=== PATIENT | male | born 1980 | race Caucasian/White ===

== ENCOUNTER 2016-08-23 20:09 | Emergency (ER) | payer MEDICARE, OTHER ==
[~2016-08-23] VITALS: Ht 182.9 cm; Wt 85.0 kg
[~2016-08-23 20:09] MED LIST: OLAN10TA3 PO; TRAZ-147 PO
[2016-08-23 20:12] VITALS: BP 127/85
[2016-08-23 20:48] LABS: BASOPHILS # (AUTO) 0.04 K/uL (0.00-0.20); BASOPHILS % (AUTO) 0.5 % (0.0-2.0); EOSINOPHILS # (AUTO) 0.31 K/uL (0.00-0.70); HEMATOCRIT 46.3 % (41-53); HEMOGLOBIN 15.4 g/dL (13.5-17.5); LYMPHOCYTES # (AUTO) 2.6 K/uL (1.0-4.8); LYMPHOCYTES % (AUTO) 27.2 % (22.0-44.0); MEAN CORPUSCULAR HEMOGLOBIN 30.1 pg (26.0-34.0); MEAN CORPUSCULAR HGB CONC 33.4 G/dL (31.0-37.0); MEAN CORPUSCULAR VOLUME 90 fL (80-100); MONOCYTES # (AUTO) 0.4 K/uL (0.1-1.0); MONOCYTES % (AUTO) 4.5 % (2.0-9.0); NEUTROPHILS # (AUTO) 6.1 K/uL (1.8-7.7); NEUTROPHILS % (AUTO) 64.5 % (40.0-70.0); PLATELET COUNT (AUTO) 152 K/uL (150-450); RED BLOOD CELL COUNT(AUTO) 5.12 MIL/uL (4.50-5.90); RED CELL DISTRIBUTION WIDTH 13.5 % (11.5-14.5); WHITE BLOOD COUNT (AUTO) 9.4 K/uL (4.5-11.0)
[2016-08-23 20:56] LABS: ANION GAP 11 mmol/L (8-16); CALCIUM, TOTAL 8.6 mg/dL (8.8-10.5); CARBON DIOXIDE 26 mmol/L (22-29); CHLORIDE 103 mmol/L (98-107); CREATININE 0.84 mg/dL (0.60-1.30); GLOMERULAR FILTR. RATE CALC > 60 mL/min (>60); POTASSIUM 3.8 mmol/L (3.5-5.1); SODIUM SERUM 140 mmol/L (136-145); UREA NITROGEN, BLOOD 13 mg/dL (7-18)
[2016-08-23 21:02] LABS: ALANINE AMINOTRANSFERASE 39 U/L (12-78); ALBUMIN 3.9 g/dL (3.4-5.0); ASPARTATE AMINOTRANSFERASE 15 U/L (15-37); BILIRUBIN,TOTAL 0.3 mg/dL (0.1-1.0)
== END 2016-08-23 21:39 | disposition home or self-care (01) ==
LOC: EMS 20:13
DX: F25.9 Schizoaffective disorder, unspecified (principal); F17.210 Nicotine dependence, cigarettes, uncomplicated; Z88.1 Allergy status to other antibiotic agents
CPT/HCPCS: 36415; 80053; 80307; 85025; 99285; G0480

== ENCOUNTER 2016-09-10 11:02 | Inpatient (IN) | payer MEDICARE, MEDICAID ==
[~2016-09-10] VITALS: Ht 188 cm; Wt 78.2 kg
[2016-09-10 11:51] LABS: BASOPHILS % (AUTO) 0.5 % (0.0-2.0); EOSINOPHILS % (AUTO) 1.8 % (1.0-6.0); HEMATOCRIT 50.9 % (41-53); HEMOGLOBIN 16.5 g/dL (13.5-17.5); LYMPHOCYTES # (AUTO) 1.7 K/uL (1.0-4.8); LYMPHOCYTES % (AUTO) 19.9 % (22.0-44.0); MEAN CORPUSCULAR HEMOGLOBIN 29.1 pg (26.0-34.0); MEAN CORPUSCULAR HGB CONC 32.4 G/dL (31.0-37.0); MEAN CORPUSCULAR VOLUME 90 fL (80-100); MONOCYTES # (AUTO) 0.6 K/uL (0.1-1.0); MONOCYTES % (AUTO) 7.1 % (2.0-9.0); NEUTROPHILS # (AUTO) 5.9 K/uL (1.8-7.7); NEUTROPHILS % (AUTO) 70.7 % (40.0-70.0); PLATELET COUNT (AUTO) 186 K/uL (150-450); RED BLOOD CELL COUNT(AUTO) 5.66 MIL/uL (4.50-5.90); RED CELL DISTRIBUTION WIDTH 13.3 % (11.5-14.5); WHITE BLOOD COUNT (AUTO) 8.4 K/uL (4.5-11.0)
[2016-09-10 12:05] LABS: ANION GAP 10 mmol/L (8-16); CALCIUM, TOTAL 8.7 mg/dL (8.8-10.5); CARBON DIOXIDE 27 mmol/L (22-29); CHLORIDE 103 mmol/L (98-107); CREATININE 1.07 mg/dL (0.60-1.30); GLOMERULAR FILTR. RATE CALC > 60 mL/min (>60); POTASSIUM 3.6 mmol/L (3.5-5.1); SODIUM SERUM 140 mmol/L (136-145); UREA NITROGEN, BLOOD 16 mg/dL (7-18)
[2016-09-10 12:07] LABS: ALANINE AMINOTRANSFERASE 50 U/L (12-78); ALBUMIN 4.3 g/dL (3.4-5.0); ASPARTATE AMINOTRANSFERASE 16 U/L (15-37); BILIRUBIN,TOTAL 0.6 mg/dL (0.1-1.0); TOTAL PROTEIN, SERUM 7.6 g/dL (6.4-8.2)
[2016-09-10] MEDS ORDERED: HALOPERIDOL 5 MG TABLET PO ONE (13:45)
[2016-09-10] MEDS ORDERED: ZOLPIDEM TARTRATE 10 MG TABLET PO PRN (13:45)
[2016-09-10 17:23] VITALS: BP 128/82
[2016-09-11 07:00] VITALS: BP 120/93
[2016-09-11 08:14] VITALS: BP 117/88
[2016-09-11 08:28] LABS: BASOPHILS % (AUTO) 0.9 % (0.0-2.0); EOSINOPHILS % (AUTO) 2.8 % (1.0-6.0); HEMATOCRIT 48.8 % (41-53); HEMOGLOBIN 15.8 g/dL (13.5-17.5); LYMPHOCYTES # (AUTO) 1.9 K/uL (1.0-4.8); LYMPHOCYTES % (AUTO) 24.3 % (22.0-44.0); MEAN CORPUSCULAR HEMOGLOBIN 29.2 pg (26.0-34.0); MEAN CORPUSCULAR HGB CONC 32.4 G/dL (31.0-37.0); MEAN CORPUSCULAR VOLUME 90 fL (80-100); MONOCYTES # (AUTO) 0.6 K/uL (0.1-1.0); MONOCYTES % (AUTO) 7.1 % (2.0-9.0); NEUTROPHILS # (AUTO) 5.2 K/uL (1.8-7.7); NEUTROPHILS % (AUTO) 64.9 % (40.0-70.0); PLATELET COUNT (AUTO) 187 K/uL (150-450); RED BLOOD CELL COUNT(AUTO) 5.41 MIL/uL (4.50-5.90); RED CELL DISTRIBUTION WIDTH 13.9 % (11.5-14.5)
[2016-09-11] MEDS: NICOTINE 21 MG/24 HOUR PATCH TD SCH (08:34)
[2016-09-11 08:47] LABS: ALANINE AMINOTRANSFERASE 41 U/L (12-78); ALBUMIN 4.1 g/dL (3.4-5.0); ANION GAP 11 mmol/L (8-16); ASPARTATE AMINOTRANSFERASE 15 U/L (15-37); BILIRUBIN,TOTAL 0.5 mg/dL (0.1-1.0); CALCIUM, TOTAL 8.6 mg/dL (8.8-10.5); CARBON DIOXIDE 27 mmol/L (22-29); CHLORIDE 101 mmol/L (98-107); CHOL/HDL RATIO 4.6 (4.2-7.3); CREATININE 0.94 mg/dL (0.60-1.30); GLOMERULAR FILTR. RATE CALC > 60 mL/min (>60); SODIUM SERUM 139 mmol/L (136-145); TOTAL PROTEIN, SERUM 7.4 g/dL (6.4-8.2); UREA NITROGEN, BLOOD 17 mg/dL (7-18)
[2016-09-11] MEDS: HALOPERIDOL 5 MG TABLET PO PRN (08:58)
[2016-09-11] MEDS ORDERED: CloNIDine HCL 0.1 MG TABLET PO PRN (10:00)
[2016-09-11] MEDS ORDERED: ALBUTEROL SULFATE HFA 90 MCG/PUFF 8 GM INHALER IH PRN (10:00)
[2016-09-11] MEDS ORDERED: PETROLATUM,WHITE 71 GM JELLY TP PRN (10:00)
[2016-09-11] MEDS ORDERED: MAGNESIUM HYDROXIDE SUSPENSION 30 ML UDCUP PO PRN (10:00)
[2016-09-11] MEDS ORDERED: LOPERAMIDE HCL 2 MG CAPSULE PO PRN (10:00)
[2016-09-11] MEDS ORDERED: ONDANSETRON HCL 4 MG TABLET PO PRN (10:00)
[2016-09-11] MEDS ORDERED: BENZOCAINE/MENTHOL LOZENGE MM PRN (10:00)
[2016-09-11] MEDS ORDERED: BACITRACIN 28.4 GM OINTMENT TP PRN (10:00)
[2016-09-11] MEDS ORDERED: IBUPROFEN 600 MG TABLET PO PRN (10:00)
[2016-09-11] MEDS ORDERED: MAG HYDROX/AL HYDROX/SIMETH ES 30 ML SUSPENSION UDCUP PO PRN (10:00)
[2016-09-11] MEDS ORDERED: ACETAMINOPHEN 325 MG TABLET PO PRN (10:00)
[2016-09-11 16:10] VITALS: BP 106/67
[2016-09-11] MEDS: TraZODone HCL 100 MG TABLET PO SCH (21:03)
[2016-09-11] MEDS: OLANZapine 10 MG TABLET PO SCH (21:03)
[2016-09-12 06:25] VITALS: BP 104/75
[2016-09-12 08:19] VITALS: BP 109/60
[2016-09-12] MEDS: NICOTINE 21 MG/24 HOUR PATCH TD SCH (09:14)
[2016-09-12 16:08] VITALS: BP 107/63
[2016-09-12] MEDS: OLANZapine 10 MG TABLET PO SCH (20:37)
[2016-09-12] MEDS: TraZODone HCL 100 MG TABLET PO SCH (20:37)
[2016-09-13 00:55] VITALS: BP 115/64
[2016-09-13 08:20] VITALS: BP 111/63
[2016-09-13] MEDS: NICOTINE 21 MG/24 HOUR PATCH TD SCH (09:00)
[2016-09-13 16:08] VITALS: BP 122/75
[2016-09-13] MEDS: OLANZapine 10 MG TABLET PO SCH (20:36)
[2016-09-13] MEDS: TraZODone HCL 100 MG TABLET PO SCH (20:36)
[2016-09-14 03:50] VITALS: BP 108/87
[2016-09-14 08:06] VITALS: BP 127/87
[2016-09-14] MEDS: NICOTINE 21 MG/24 HOUR PATCH TD SCH (08:13)
[2016-09-14 16:11] VITALS: BP 133/85
[2016-09-14] MEDS: OLANZapine 10 MG TABLET PO SCH (20:37)
[2016-09-14] MEDS: TraZODone HCL 100 MG TABLET PO SCH (20:38)
[2016-09-15 02:14] VITALS: BP 107/66
[2016-09-15 08:08] VITALS: BP 122/70
[2016-09-15] MEDS: NICOTINE 21 MG/24 HOUR PATCH TD SCH (08:10)
[2016-09-15 16:10] VITALS: BP 125/72
[2016-09-15] MEDS: OLANZapine 10 MG TABLET PO SCH (20:29)
[2016-09-15] MEDS: TraZODone HCL 100 MG TABLET PO SCH (20:29)
[2016-09-16 06:22] VITALS: BP 114/77
[2016-09-16 08:17] VITALS: BP 104/61
[2016-09-16] MEDS: NICOTINE 21 MG/24 HOUR PATCH TD SCH (08:18)
[2016-09-16] MEDS: HALOPERIDOL 5 MG TABLET PO PRN (09:43)
[2016-09-16] MEDS: LORazepam 2 MG TABLET PO PRN (14:02)
[2016-09-16 16:10] VITALS: BP 117/66
[2016-09-16] MEDS: TraZODone HCL 100 MG TABLET PO SCH (20:39)
[2016-09-16] MEDS: OLANZapine 10 MG TABLET PO SCH (20:39)
[2016-09-17 06:06] VITALS: BP 102/71
[2016-09-17] MEDS: LORazepam 2 MG TABLET PO PRN (08:26)
[2016-09-17] MEDS: NICOTINE 21 MG/24 HOUR PATCH TD SCH (08:26)
[2016-09-17 08:36] VITALS: BP 125/76
[2016-09-17 16:39] VITALS: BP 119/69
[2016-09-17] MEDS: TraZODone HCL 100 MG TABLET PO SCH (20:35)
[2016-09-17] MEDS: OLANZapine 10 MG TABLET PO SCH (20:35)
[2016-09-18 06:31] VITALS: BP 110/65
[2016-09-18 08:10] VITALS: BP 107/67
[2016-09-18] MEDS: NICOTINE 21 MG/24 HOUR PATCH TD SCH (09:11)
[2016-09-18 16:10] VITALS: BP 137/72
[2016-09-18] MEDS: OLANZapine 10 MG TABLET PO SCH (20:34)
[2016-09-18] MEDS: TraZODone HCL 100 MG TABLET PO SCH (20:34)
[2016-09-19 06:19] VITALS: BP 122/72
[2016-09-19] MEDS: LEVOTHYROXINE SODIUM 25 MCG TABLET PO SCH (06:33)
[2016-09-19 08:15] VITALS: BP 120/76
[2016-09-19] MEDS: NICOTINE 21 MG/24 HOUR PATCH TD SCH (09:15)
[2016-09-19 16:31] VITALS: BP 111/73
[2016-09-19] MEDS: TraZODone HCL 100 MG TABLET PO SCH (20:38)
[2016-09-19] MEDS: OLANZapine 10 MG TABLET PO SCH (20:39)
[2016-09-20] MEDS: LEVOTHYROXINE SODIUM 25 MCG TABLET PO SCH (06:23)
[2016-09-20 06:42] VITALS: BP 114/62
[2016-09-20] MEDS: NICOTINE 21 MG/24 HOUR PATCH TD SCH (08:13)
[2016-09-20 09:46] VITALS: BP 117/88
[2016-09-20 16:18] VITALS: BP 112/80
[2016-09-20] MEDS: OLANZapine 10 MG TABLET PO SCH (20:42)
[2016-09-20] MEDS: TraZODone HCL 100 MG TABLET PO SCH (20:43)
[2016-09-21 00:11] VITALS: BP 100/62
[2016-09-21] MEDS: LEVOTHYROXINE SODIUM 25 MCG TABLET PO SCH (06:02)
[2016-09-21] MEDS: NICOTINE 21 MG/24 HOUR PATCH TD SCH (08:12)
[2016-09-21 08:35] VITALS: BP 115/68
[2016-09-21] MEDS ORDERED: LEVO25TA9 PO (11:44)
[2016-09-29] MEDS ORDERED: HALOPERIDOL DECANOATE 100 MG/ML VIAL IM SCH (09:00)
== END 2016-09-21 16:05 | disposition home or self-care (01) | DRG 885 ==
LOC: EEVIPCON 11:02 → EMS 11:05 → B2X 16:14
DX: F25.1 Schizoaffective disorder, depressive type (principal); R45.851 Suicidal ideations; F17.210 Nicotine dependence, cigarettes, uncomplicated; G47.00 Insomnia, unspecified; K59.00 Constipation, unspecified; Z91.14 Patient's other noncompliance with medication regimen; Z91.5 Personal history of self-harm; Z71.6 Tobacco abuse counseling; Z88.2 Allergy status to sulfonamides; Z79.899 Other long term (current) drug therapy
CPT/HCPCS: 82306; 84443; 99285; G0480

== ENCOUNTER 2016-10-01 10:41 | Inpatient (IN) | payer MEDICARE, MEDICAID ==
[~2016-10-01] VITALS: Ht 188 cm; Wt 79.5 kg
[~2016-10-01 10:41] MED LIST changes: +LEVO25TA9 PO
[2016-10-01 11:02] LABS: BASOPHILS % (AUTO) 0.4 % (0.0-2.0); EOSINOPHILS % (AUTO) 1.1 % (1.0-6.0); HEMATOCRIT 50.3 % (41-53); HEMOGLOBIN 17.1 g/dL (13.5-17.5); LYMPHOCYTES # (AUTO) 1.3 K/uL (1.0-4.8); LYMPHOCYTES % (AUTO) 15.8 % (22.0-44.0); MEAN CORPUSCULAR HEMOGLOBIN 30.2 pg (26.0-34.0); MEAN CORPUSCULAR HGB CONC 33.9 G/dL (31.0-37.0); MEAN CORPUSCULAR VOLUME 89 fL (80-100); MONOCYTES # (AUTO) 0.4 K/uL (0.1-1.0); MONOCYTES % (AUTO) 5.4 % (2.0-9.0); NEUTROPHILS # (AUTO) 6.3 K/uL (1.8-7.7); NEUTROPHILS % (AUTO) 77.3 % (40.0-70.0); PLATELET COUNT (AUTO) 173 K/uL (150-450); RED BLOOD CELL COUNT(AUTO) 5.66 MIL/uL (4.50-5.90); RED CELL DISTRIBUTION WIDTH 13.8 % (11.5-14.5); WHITE BLOOD COUNT (AUTO) 8.2 K/uL (4.5-11.0)
[2016-10-01 11:15] LABS: ANION GAP 9 mmol/L (8-16); CALCIUM, TOTAL 8.6 mg/dL (8.8-10.5); CARBON DIOXIDE 28 mmol/L (22-29); CHLORIDE 103 mmol/L (98-107); GLOMERULAR FILTR. RATE CALC > 60 mL/min (>60); POTASSIUM 4.1 mmol/L (3.5-5.1); SODIUM SERUM 140 mmol/L (136-145); UREA NITROGEN, BLOOD 13 mg/dL (7-18)
[2016-10-01] MEDS ORDERED: CLON.5 PO (11:16)
[2016-10-01 11:21] LABS: ALANINE AMINOTRANSFERASE 64 U/L (12-78); ALBUMIN 4.3 g/dL (3.4-5.0); ASPARTATE AMINOTRANSFERASE 17 U/L (15-37); BILIRUBIN,TOTAL 0.4 mg/dL (0.1-1.0); TOTAL PROTEIN, SERUM 7.5 g/dL (6.4-8.2)
[2016-10-01] MEDS ORDERED: ZOLPIDEM TARTRATE 10 MG TABLET PO PRN (12:15)
[2016-10-01] MEDS ORDERED: HALOPERIDOL 5 MG TABLET PO PRN (12:15)
[2016-10-01] MEDS ORDERED: LORazepam 2 MG TABLET PO PRN (12:15)
[2016-10-01 16:43] VITALS: BP 118/86
[2016-10-01] MEDS: ClonazePAM 0.5 MG TABLET PO SCH (16:57)
[2016-10-01] MEDS ORDERED: MAGNESIUM HYDROXIDE SUSPENSION 30 ML UDCUP PO PRN (19:15)
[2016-10-01] MEDS: TraZODone HCL 100 MG TABLET PO SCH (20:35)
[2016-10-01] MEDS: OLANZapine 10 MG TABLET PO SCH (20:35)
[2016-10-02 05:12] VITALS: BP 122/89
[2016-10-02 08:02] VITALS: BP 115/72
[2016-10-02] MEDS ORDERED: LOPERAMIDE HCL 2 MG CAPSULE PO PRN (08:30)
[2016-10-02] MEDS ORDERED: IBUPROFEN 600 MG TABLET PO PRN (08:30)
[2016-10-02] MEDS ORDERED: ONDANSETRON HCL 4 MG TABLET PO PRN (08:30)
[2016-10-02] MEDS ORDERED: BACITRACIN 28.4 GM OINTMENT TP PRN (08:30)
[2016-10-02] MEDS ORDERED: PETROLATUM,WHITE 71 GM JELLY TP PRN (08:30)
[2016-10-02] MEDS ORDERED: MAG HYDROX/AL HYDROX/SIMETH ES 30 ML SUSPENSION UDCUP PO PRN (08:30)
[2016-10-02] MEDS ORDERED: CloNIDine HCL 0.1 MG TABLET PO PRN (08:30)
[2016-10-02] MEDS ORDERED: BENZOCAINE/MENTHOL LOZENGE MM PRN (08:30)
[2016-10-02] MEDS ORDERED: ACETAMINOPHEN 325 MG TABLET PO PRN (08:30)
[2016-10-02] MEDS ORDERED: ALBUTEROL SULFATE HFA 90 MCG/PUFF 8 GM INHALER IH PRN (08:30)
[2016-10-02] MEDS: NICOTINE 21 MG/24 HOUR PATCH TD SCH (08:50)
[2016-10-02] MEDS: ClonazePAM 0.5 MG TABLET PO SCH ×2 (08:50→16:32)
[2016-10-02] MEDS: SERTRALINE HCL 50 MG TABLET PO SCH (10:43)
[2016-10-02 16:06] VITALS: BP 125/84
[2016-10-02] MEDS: TraZODone HCL 100 MG TABLET PO SCH (20:33)
[2016-10-02] MEDS: OLANZapine 10 MG TABLET PO SCH (20:34)
[2016-10-02] MEDS ORDERED: OLANZapine 10 MG TABLET PO SCH (21:00)
[2016-10-02] MEDS ORDERED: TraZODone HCL 50 MG TABLET PO SCH (21:00)
[2016-10-03 00:03] VITALS: BP 106/71
[2016-10-03] MEDS: LEVOTHYROXINE SODIUM 25 MCG TABLET PO SCH (06:31)
[2016-10-03 08:09] VITALS: BP 123/68
[2016-10-03] MEDS: ClonazePAM 0.5 MG TABLET PO SCH ×2 (08:47→16:35)
[2016-10-03] MEDS: NICOTINE 21 MG/24 HOUR PATCH TD SCH (08:48)
[2016-10-03] MEDS: SERTRALINE HCL 50 MG TABLET PO SCH (08:48)
[2016-10-03 16:09] VITALS: BP 125/85
[2016-10-03] MEDS: OLANZapine 10 MG TABLET PO SCH (20:33)
[2016-10-03] MEDS: TraZODone HCL 100 MG TABLET PO SCH (20:33)
[2016-10-04] MEDS: LEVOTHYROXINE SODIUM 25 MCG TABLET PO SCH (05:37)
[2016-10-04 05:48] VITALS: BP 109/64
[2016-10-04 08:27] VITALS: BP 105/64
[2016-10-04] MEDS: FISH OIL/OMEGA-3 FATTY ACIDS 500 MG CAPSULE PO SCH (08:49)
[2016-10-04] MEDS: SERTRALINE HCL 50 MG TABLET PO SCH (08:49)
[2016-10-04] MEDS: NICOTINE 21 MG/24 HOUR PATCH TD SCH (08:49)
[2016-10-04 08:55] VITALS: BP 119/67
[2016-10-04] MEDS: ClonazePAM 0.5 MG TABLET PO SCH ×2 (08:55→16:29)
[2016-10-04 16:03] VITALS: BP 106/66
[2016-10-04] MEDS: OLANZapine 10 MG TABLET PO SCH (20:40)
[2016-10-04] MEDS: TraZODone HCL 100 MG TABLET PO SCH (20:40)
[2016-10-05 06:35] VITALS: BP 112/59
[2016-10-05] MEDS: LEVOTHYROXINE SODIUM 25 MCG TABLET PO SCH (07:19)
[2016-10-05] MEDS: FISH OIL/OMEGA-3 FATTY ACIDS 500 MG CAPSULE PO SCH (08:38)
[2016-10-05] MEDS: ClonazePAM 0.5 MG TABLET PO SCH ×2 (08:38→16:38)
[2016-10-05] MEDS: SERTRALINE HCL 50 MG TABLET PO SCH (08:38)
[2016-10-05] MEDS: NICOTINE 21 MG/24 HOUR PATCH TD SCH (08:39)
[2016-10-05 08:46] VITALS: BP 123/78
[2016-10-05 16:06] VITALS: BP 106/63
[2016-10-05] MEDS: TraZODone HCL 100 MG TABLET PO SCH (20:42)
[2016-10-05] MEDS: OLANZapine 10 MG TABLET PO SCH (20:43)
[2016-10-06 00:03] VITALS: BP 109/65
[2016-10-06] MEDS: LEVOTHYROXINE SODIUM 25 MCG TABLET PO SCH (06:52)
[2016-10-06 08:14] VITALS: BP 100/66
[2016-10-06] MEDS: NICOTINE 21 MG/24 HOUR PATCH TD SCH (08:34)
[2016-10-06] MEDS: SERTRALINE HCL 50 MG TABLET PO SCH (08:34)
[2016-10-06] MEDS: FISH OIL/OMEGA-3 FATTY ACIDS 500 MG CAPSULE PO SCH (08:34)
[2016-10-06 08:38] VITALS: BP 110/77
[2016-10-06] MEDS: ClonazePAM 0.5 MG TABLET PO SCH ×2 (08:38→16:22)
[2016-10-06 16:10] VITALS: BP 126/95
[2016-10-06] MEDS: TraZODone HCL 100 MG TABLET PO SCH (20:04)
[2016-10-06] MEDS: OLANZapine 10 MG TABLET PO SCH (20:04)
[2016-10-07 05:42] VITALS: BP 115/82
[2016-10-07] MEDS: LEVOTHYROXINE SODIUM 25 MCG TABLET PO SCH (06:30)
[2016-10-07 08:29] VITALS: BP 124/84
[2016-10-07] MEDS: ClonazePAM 0.5 MG TABLET PO SCH ×2 (08:30→16:35)
[2016-10-07] MEDS: NICOTINE 21 MG/24 HOUR PATCH TD SCH (08:30)
[2016-10-07] MEDS: SERTRALINE HCL 50 MG TABLET PO SCH (08:30)
[2016-10-07] MEDS: FISH OIL/OMEGA-3 FATTY ACIDS 500 MG CAPSULE PO SCH (08:30)
[2016-10-07 16:35] VITALS: BP 126/67
[2016-10-07] MEDS: OLANZapine 10 MG TABLET PO SCH (20:04)
[2016-10-07] MEDS: TraZODone HCL 100 MG TABLET PO SCH (20:04)
[2016-10-08 00:52] VITALS: BP 107/61
[2016-10-08] MEDS: LEVOTHYROXINE SODIUM 25 MCG TABLET PO SCH (06:47)
[2016-10-08 08:08] VITALS: BP 96/60
[2016-10-08 09:00] VITALS: BP 110/88
[2016-10-08] MEDS: FISH OIL/OMEGA-3 FATTY ACIDS 500 MG CAPSULE PO SCH (09:09)
[2016-10-08] MEDS: SERTRALINE HCL 50 MG TABLET PO SCH (09:09)
[2016-10-08] MEDS: ClonazePAM 0.5 MG TABLET PO SCH ×2 (09:09→16:37)
[2016-10-08] MEDS: NICOTINE 21 MG/24 HOUR PATCH TD SCH (09:10)
[2016-10-08 16:35] VITALS: BP 116/79
[2016-10-08] MEDS: OLANZapine 10 MG TABLET PO SCH (20:02)
[2016-10-08] MEDS: TraZODone HCL 100 MG TABLET PO SCH (20:02)
[2016-10-09] MEDS: LEVOTHYROXINE SODIUM 25 MCG TABLET PO SCH (05:31)
[2016-10-09 05:33] VITALS: BP 119/88
[2016-10-09 08:45] VITALS: BP 109/77
[2016-10-09] MEDS: FISH OIL/OMEGA-3 FATTY ACIDS 500 MG CAPSULE PO SCH (09:15)
[2016-10-09] MEDS: NICOTINE 21 MG/24 HOUR PATCH TD SCH (09:15)
[2016-10-09] MEDS: ClonazePAM 0.5 MG TABLET PO SCH (09:15)
[2016-10-09] MEDS: SERTRALINE HCL 50 MG TABLET PO SCH (09:15)
[2016-10-09] MEDS ORDERED: LEVO25TA9 PO (11:08)
[2016-10-09] MEDS ORDERED: SERT25TA PO (11:08)
[2016-10-09] MEDS ORDERED: OMEG-125 PO (11:08)
== END 2016-10-09 15:05 | disposition home or self-care (01) | DRG 885 ==
LOC: EMS 10:43 → EEVIPCON 10:43 → B2X 15:23
DX: F25.0 Schizoaffective disorder, bipolar type (principal); R45.851 Suicidal ideations; G47.00 Insomnia, unspecified; K59.00 Constipation, unspecified; E78.1 Pure hyperglyceridemia; E83.51 Hypocalcemia; F17.210 Nicotine dependence, cigarettes, uncomplicated; E03.9 Hypothyroidism, unspecified; Z88.2 Allergy status to sulfonamides; Z79.899 Other long term (current) drug therapy; Z71.6 Tobacco abuse counseling
CPT/HCPCS: 82306; 87081; 99285; G0480

== ENCOUNTER 2017-11-04 21:24 | Emergency (ER) | payer MEDICARE, OTHER ==
[~2017-11-04] VITALS: Ht 188 cm; Wt 77.3 kg
[~2017-11-04 21:24] MED LIST changes: +CLON.5 PO; +OMEG-125 PO; +SERT25TA PO; -TRAZ-147 PO; +TRAZ-220 PO
[2017-11-04 21:48] VITALS: BP 118/62
[2017-11-04] MEDS ORDERED: CARI6CAP PO (21:59)
[2017-11-04] MEDS ORDERED: HALO5AMP2 IM (21:59)
[2017-11-04] MEDS ORDERED: BENZ1TAB10 PO (21:59)
== END 2017-11-04 22:54 | disposition home or self-care (01) ==
LOC: EMS 21:24
DX: F20.0 Paranoid schizophrenia (principal); F17.210 Nicotine dependence, cigarettes, uncomplicated; Z88.2 Allergy status to sulfonamides
CPT/HCPCS: 99284

== ENCOUNTER 2018-07-08 16:44 | Emergency (ER) | payer MEDICARE, OTHER ==
[~2018-07-08] VITALS: Ht 182.9 cm; Wt 73.9 kg
[~2018-07-08 16:44] MED LIST changes: +BENZ1TAB10 PO; +CARI6CAP PO; -CLON.5 PO; +HALO5AMP2 IM; -OLAN10TA3 PO; -OMEG-125 PO; -SERT25TA PO; -TRAZ-220 PO
[2018-07-08 17:25] VITALS: BP 134/65
[2018-07-09] MEDS ORDERED: HALO100V4 IM (12:00)
== END 2018-07-08 17:43 | disposition left against medical advice (07) ==
LOC: EMS 16:45
DX: F20.0 Paranoid schizophrenia (principal); F17.210 Nicotine dependence, cigarettes, uncomplicated; Z79.899 Other long term (current) drug therapy

== ENCOUNTER 2018-07-09 08:29 | Inpatient (IN) | payer MEDICARE, MEDICAID ==
[~2018-07-09] VITALS: Ht 185.4 cm; Wt 75.7 kg
[2018-07-09 09:57] LABS: BASOPHILS % (AUTO) 1.1 % (0.0-2.0); EOSINOPHILS % (AUTO) 2.4 % (1.0-6.0); HEMATOCRIT 46.1 % (41-53); HEMOGLOBIN 15.8 g/dL (13.5-17.5); LYMPHOCYTES # (AUTO) 1.5 K/uL (1.0-4.8); LYMPHOCYTES % (AUTO) 18.6 % (22.0-44.0); MEAN CORPUSCULAR HEMOGLOBIN 30.7 pg (26.0-34.0); MEAN CORPUSCULAR HGB CONC 34.2 G/dL (31.0-37.0); MEAN CORPUSCULAR VOLUME 90 fL (80-100); MONOCYTES # (AUTO) 0.7 K/uL (0.1-1.0); MONOCYTES % (AUTO) 8.7 % (2.0-9.0); NEUTROPHILS # (AUTO) 5.7 K/uL (1.8-7.7); NEUTROPHILS % (AUTO) 69.2 % (40.0-70.0); PLATELET COUNT (AUTO) 160 K/uL (150-450); RED BLOOD CELL COUNT(AUTO) 5.14 MIL/uL (4.50-5.90); RED CELL DISTRIBUTION WIDTH 13.2 % (11.5-14.5)
[2018-07-09 10:06] LABS: ANION GAP 9 mmol/L (8-16); CALCIUM, TOTAL 8.7 mg/dL (8.8-10.5); CARBON DIOXIDE 30 mmol/L (22-29); CHLORIDE 104 mmol/L (98-107); CREATININE 0.77 mg/dL (0.60-1.30); GLOMERULAR FILTR. RATE CALC > 60 mL/min (>60); GLUCOSE,RANDOM 79 mg/dL (70-110); POTASSIUM 3.8 mmol/L (3.5-5.1); SODIUM SERUM 143 mmol/L (136-145); UREA NITROGEN, BLOOD 21 mg/dL (7-18)
[2018-07-09 10:12] LABS: ALANINE AMINOTRANSFERASE 36 U/L (12-78); ALBUMIN 3.9 g/dL (3.4-5.0); ALKALINE PHOSPHATASE 87 U/L (46-116); ASPARTATE AMINOTRANSFERASE 16 U/L (15-37); BILIRUBIN,TOTAL 0.4 mg/dL (0.1-1.0); TOTAL PROTEIN, SERUM 6.8 g/dL (6.4-8.2)
[2018-07-09] MEDS ORDERED: ZOLPIDEM TARTRATE 10 MG TABLET PO PRN (11:45)
[2018-07-09] MEDS ORDERED: HALO100V4 IM (12:00)
[2018-07-09 14:52] VITALS: BP 120/65
[2018-07-09 18:24] VITALS: BP 122/64
[2018-07-10] MEDS: LEVOTHYROXINE SODIUM 25 MCG TABLET PO SCH (06:48)
[2018-07-10 07:21] LABS: FREE T4 (FREE THYROXINE) 1.06 ng/dL (0.76-1.46); THYROID STIMULATING HORMONE 1.69 uIU/mL (0.36-3.74)
[2018-07-10] MEDS ORDERED: IBUPROFEN 600 MG TABLET PO PRN (07:30)
[2018-07-10] MEDS ORDERED: ACETAMINOPHEN 325 MG TABLET PO PRN (07:30)
[2018-07-10] MEDS ORDERED: MAG HYDROX/AL HYDROX/SIMETH ES 30 ML SUSPENSION UDCUP PO PRN (07:30)
[2018-07-10] MEDS ORDERED: LOPERAMIDE HCL 2 MG CAPSULE PO PRN (07:30)
[2018-07-10] MEDS ORDERED: ONDANSETRON HCL 4 MG TABLET PO PRN (07:30)
[2018-07-10] MEDS ORDERED: PETROLATUM,WHITE 28 GM JELLY TP PRN (07:30)
[2018-07-10] MEDS ORDERED: BACITRACIN 28.4 GM OINTMENT TP PRN (07:30)
[2018-07-10] MEDS ORDERED: BENZOCAINE/MENTHOL LOZENGE MM PRN (07:30)
[2018-07-10] MEDS ORDERED: CloNIDine HCL 0.1 MG TABLET PO PRN (07:30)
[2018-07-10] MEDS ORDERED: ALBUTEROL SULFATE HFA 90 MCG/PUFF 8 GM INHALER IH PRN (07:30)
[2018-07-10] MEDS: HALOPERIDOL 5 MG TABLET PO PRN (08:13)
[2018-07-10] MEDS: LORazepam 2 MG TABLET PO PRN (08:13)
[2018-07-10] MEDS: DOCUSATE SODIUM 100 MG CAPSULE PO SCH (08:17)
[2018-07-10] MEDS: OMEPRAZOLE 20 MG CAPSULE PO SCH (08:17)
[2018-07-10 09:43] VITALS: BP 127/62
[2018-07-10] MEDS: OLANZapine 5 MG TABLET PO SCH ×2 (11:29→17:51)
[2018-07-10 18:19] VITALS: BP 125/72
[2018-07-11] MEDS: LEVOTHYROXINE SODIUM 25 MCG TABLET PO SCH (07:03)
[2018-07-11] MEDS: OMEPRAZOLE 20 MG CAPSULE PO SCH (08:46)
[2018-07-11] MEDS: OLANZapine 5 MG TABLET PO SCH (08:47)
[2018-07-11] MEDS: DOCUSATE SODIUM 100 MG CAPSULE PO SCH (09:00)
[2018-07-11 09:02] VITALS: BP 121/81
[2018-07-11 16:40] VITALS: BP 92/52
[2018-07-11] MEDS ORDERED: OLANZapine 5 MG TABLET PO SCH (17:00)
[2018-07-12 02:47] VITALS: BP 108/62
[2018-07-12] MEDS: LEVOTHYROXINE SODIUM 25 MCG TABLET PO SCH (07:07)
[2018-07-12 08:05] VITALS: BP 119/82
[2018-07-12] MEDS: OMEPRAZOLE 20 MG CAPSULE PO SCH (08:28)
[2018-07-12] MEDS: OLANZapine 10 MG TABLET PO SCH ×2 (08:28→16:22)
[2018-07-12] MEDS: DOCUSATE SODIUM 100 MG CAPSULE PO SCH (09:00)
[2018-07-12 16:56] VITALS: BP 94/51
[2018-07-13 03:05] VITALS: BP 118/82
[2018-07-13] MEDS: LEVOTHYROXINE SODIUM 25 MCG TABLET PO SCH (06:35)
[2018-07-13 08:05] VITALS: BP 133/75
[2018-07-13] MEDS: OMEPRAZOLE 20 MG CAPSULE PO SCH (08:10)
[2018-07-13] MEDS: HALOPERIDOL 5 MG TABLET PO PRN (08:10)
[2018-07-13] MEDS: LORazepam 2 MG TABLET PO PRN (08:10)
[2018-07-13] MEDS: OLANZapine 10 MG TABLET PO SCH ×2 (08:10→16:35)
[2018-07-13] MEDS: DOCUSATE SODIUM 100 MG CAPSULE PO SCH (08:12)
[2018-07-13 16:04] VITALS: BP 123/76
[2018-07-14 05:45] VITALS: BP 123/93
[2018-07-14] MEDS: LEVOTHYROXINE SODIUM 25 MCG TABLET PO SCH (06:56)
[2018-07-14] MEDS: OMEPRAZOLE 20 MG CAPSULE PO SCH (08:31)
[2018-07-14] MEDS: OLANZapine 10 MG TABLET PO SCH ×2 (08:31→16:24)
[2018-07-14] MEDS: DOCUSATE SODIUM 100 MG CAPSULE PO SCH (08:34)
[2018-07-14 16:30] VITALS: BP 126/72
[2018-07-15] MEDS: LEVOTHYROXINE SODIUM 25 MCG TABLET PO SCH ×2 (06:46→06:54)
[2018-07-15 08:11] VITALS: BP 114/79
[2018-07-15] MEDS: OMEPRAZOLE 20 MG CAPSULE PO SCH (08:35)
[2018-07-15] MEDS: OLANZapine 10 MG TABLET PO SCH ×2 (08:35→16:39)
[2018-07-15] MEDS: DOCUSATE SODIUM 100 MG CAPSULE PO SCH (08:47)
[2018-07-15] MEDS ORDERED: DOCUSATE SODIUM 100 MG CAPSULE PO PRN (09:00)
[2018-07-16 03:31] VITALS: BP 140/79
[2018-07-16] MEDS: LEVOTHYROXINE SODIUM 25 MCG TABLET PO SCH (06:08)
[2018-07-16 08:14] VITALS: BP 154/79
[2018-07-16] MEDS: OLANZapine 10 MG TABLET PO SCH ×2 (08:49→16:08)
[2018-07-16] MEDS: OMEPRAZOLE 20 MG CAPSULE PO SCH (08:49)
[2018-07-16] MEDS: LORazepam 2 MG TABLET PO PRN (09:33)
[2018-07-16] MEDS: HALOPERIDOL 5 MG TABLET PO PRN (09:33)
[2018-07-16 17:02] VITALS: BP 131/82
[2018-07-17] MEDS: LEVOTHYROXINE SODIUM 25 MCG TABLET PO SCH ×2 (06:14→06:21)
[2018-07-17 08:00] VITALS: BP 120/76
[2018-07-17] MEDS: OLANZapine 10 MG TABLET PO SCH ×2 (08:51→16:40)
[2018-07-17] MEDS: OMEPRAZOLE 20 MG CAPSULE PO SCH (08:51)
[2018-07-17 16:19] VITALS: BP 145/78
[2018-07-18] MEDS: LEVOTHYROXINE SODIUM 25 MCG TABLET PO SCH (06:33)
[2018-07-18 08:00] VITALS: BP 136/80
[2018-07-18] MEDS: OMEPRAZOLE 20 MG CAPSULE PO SCH (08:22)
[2018-07-18] MEDS: OLANZapine 10 MG TABLET PO SCH ×2 (08:22→16:30)
[2018-07-18] MEDS: LORazepam 2 MG TABLET PO PRN (08:22)
[2018-07-18] MEDS: HALOPERIDOL 5 MG TABLET PO PRN (16:30)
[2018-07-18 16:50] VITALS: BP 113/82
[2018-07-19] MEDS: LEVOTHYROXINE SODIUM 25 MCG TABLET PO SCH (06:55)
[2018-07-19 08:00] VITALS: BP 129/92
[2018-07-19] MEDS: OMEPRAZOLE 20 MG CAPSULE PO SCH (08:49)
[2018-07-19] MEDS: OLANZapine 10 MG TABLET PO SCH ×2 (08:49→16:08)
[2018-07-20 00:25] VITALS: BP 116/76
[2018-07-20] MEDS: HALOPERIDOL 5 MG TABLET PO PRN (02:12)
[2018-07-20] MEDS: LEVOTHYROXINE SODIUM 25 MCG TABLET PO SCH (05:42)
[2018-07-20 08:14] VITALS: BP 149/94
[2018-07-20] MEDS: OMEPRAZOLE 20 MG CAPSULE PO SCH (09:09)
[2018-07-20] MEDS: OLANZapine 10 MG TABLET PO SCH ×2 (09:09→16:44)
[2018-07-20 20:36] VITALS: BP 107/59
[2018-07-21] MEDS: LEVOTHYROXINE SODIUM 25 MCG TABLET PO SCH (06:35)
[2018-07-21 08:15] VITALS: BP 135/82
[2018-07-21] MEDS: OLANZapine 10 MG TABLET PO SCH ×2 (08:54→16:34)
[2018-07-21] MEDS: OMEPRAZOLE 20 MG CAPSULE PO SCH (08:54)
[2018-07-21 16:09] VITALS: BP 100/61
[2018-07-22 06:22] VITALS: BP 127/82
[2018-07-22] MEDS: LEVOTHYROXINE SODIUM 25 MCG TABLET PO SCH ×2 (06:25→06:30)
[2018-07-22] MEDS: OMEPRAZOLE 20 MG CAPSULE PO SCH (08:53)
[2018-07-22] MEDS: OLANZapine 10 MG TABLET PO SCH ×2 (08:53→16:31)
[2018-07-22 09:24] VITALS: BP 127/87
[2018-07-22 16:32] VITALS: BP 125/92
[2018-07-23] MEDS: LEVOTHYROXINE SODIUM 25 MCG TABLET PO SCH (06:29)
[2018-07-23 08:27] VITALS: BP 121/74
[2018-07-23] MEDS: OLANZapine 10 MG TABLET PO SCH ×2 (09:13→16:41)
[2018-07-23] MEDS: OMEPRAZOLE 20 MG CAPSULE PO SCH (09:13)
[2018-07-23 16:00] VITALS: BP 110/66
[2018-07-24 05:50] VITALS: BP 113/70
[2018-07-24] MEDS: LEVOTHYROXINE SODIUM 25 MCG TABLET PO SCH (07:02)
[2018-07-24] MEDS: OLANZapine 10 MG TABLET PO SCH ×2 (08:39→16:51)
[2018-07-24] MEDS: OMEPRAZOLE 20 MG CAPSULE PO SCH (08:39)
[2018-07-24 16:03] VITALS: BP 112/72
[2018-07-25 00:46] VITALS: BP 100/60
[2018-07-25] MEDS: HALOPERIDOL 5 MG TABLET PO PRN (02:44)
[2018-07-25] MEDS: LEVOTHYROXINE SODIUM 25 MCG TABLET PO SCH (06:41)
[2018-07-25] MEDS: OMEPRAZOLE 20 MG CAPSULE PO SCH (08:06)
[2018-07-25] MEDS: OLANZapine 10 MG TABLET PO SCH ×2 (08:06→16:32)
[2018-07-25 08:26] VITALS: BP 129/88
[2018-07-25 16:53] VITALS: BP 108/63
[2018-07-26 05:40] VITALS: BP 148/84
[2018-07-26] MEDS ORDERED: PNEUMOCOCCAL VACCINE POLYVALENT 0.5 ML VIAL [PPSV23] IM ONE (06:15)
[2018-07-26] MEDS: LEVOTHYROXINE SODIUM 25 MCG TABLET PO SCH (06:34)
[2018-07-26 08:34] VITALS: BP 128/77
[2018-07-26] MEDS: OMEPRAZOLE 20 MG CAPSULE PO SCH (08:39)
[2018-07-26] MEDS: OLANZapine 10 MG TABLET PO SCH ×2 (08:39→16:38)
[2018-07-26 16:44] VITALS: BP 117/76
[2018-07-26] MEDS: HALOPERIDOL 5 MG TABLET PO PRN (21:34)
[2018-07-27 00:15] VITALS: BP 140/96
[2018-07-27] MEDS: LEVOTHYROXINE SODIUM 25 MCG TABLET PO SCH (06:18)
[2018-07-27] MEDS: OMEPRAZOLE 20 MG CAPSULE PO SCH (08:11)
[2018-07-27] MEDS: OLANZapine 10 MG TABLET PO SCH ×2 (08:11→16:07)
[2018-07-27 08:29] VITALS: BP 122/88
[2018-07-27 16:07] VITALS: BP 126/79
[2018-07-28 00:17] VITALS: BP 116/65
[2018-07-28] MEDS: LEVOTHYROXINE SODIUM 25 MCG TABLET PO SCH (05:47)
[2018-07-28 08:17] VITALS: BP 129/89
[2018-07-28] MEDS: OLANZapine 10 MG TABLET PO SCH ×2 (08:20→17:05)
[2018-07-28] MEDS: OMEPRAZOLE 20 MG CAPSULE PO SCH (08:22)
[2018-07-29] MEDS: LEVOTHYROXINE SODIUM 25 MCG TABLET PO SCH (06:07)
[2018-07-29] MEDS: OLANZapine 10 MG TABLET PO SCH ×2 (08:17→17:17)
[2018-07-29] MEDS: OMEPRAZOLE 20 MG CAPSULE PO SCH (08:17)
[2018-07-29 08:18] VITALS: BP 116/87
[2018-07-30 08:06] VITALS: BP 96/60
[2018-07-30] MEDS: OLANZapine 10 MG TABLET PO SCH ×2 (08:28→16:28)
[2018-07-30] MEDS: OMEPRAZOLE 20 MG CAPSULE PO SCH (08:28)
[2018-07-30] MEDS ORDERED: TUBERCULIN, PURIFIED PROTEIN DERIVATIVE 5 TU/0.1 ML SYRINGE ID ONE (13:30)
[2018-07-30 16:03] VITALS: BP 111/75
[2018-07-31] MEDS: OLANZapine 10 MG TABLET PO SCH ×2 (08:38→16:39)
[2018-07-31] MEDS: OMEPRAZOLE 20 MG CAPSULE PO SCH (08:38)
[2018-07-31] MEDS: HALOPERIDOL 5 MG TABLET PO PRN (10:11)
[2018-07-31 16:00] VITALS: BP 128/72
[2018-08-01 08:07] VITALS: BP 114/87
[2018-08-01] MEDS: OLANZapine 10 MG TABLET PO SCH ×2 (08:10→16:31)
[2018-08-01] MEDS: OMEPRAZOLE 20 MG CAPSULE PO SCH (08:33)
[2018-08-01 16:14] VITALS: BP 97/70
[2018-08-01] MEDS ORDERED: OMEPRAZOLE 20 MG CAPSULE PO PRN (20:15)
[2018-08-02] MEDS: OLANZapine 10 MG TABLET PO SCH ×2 (08:29→16:21)
[2018-08-02 08:42] VITALS: BP 110/69
[2018-08-02 18:43] VITALS: BP 118/80
[2018-08-03] MEDS: OLANZapine 10 MG TABLET PO SCH ×2 (08:34→16:39)
[2018-08-03 08:37] VITALS: BP 118/76
[2018-08-03 16:02] VITALS: BP 104/68
[2018-08-04] MEDS: OLANZapine 10 MG TABLET PO SCH ×2 (08:48→16:32)
[2018-08-04 16:02] VITALS: BP 107/86
[2018-08-05] MEDS: OLANZapine 10 MG TABLET PO SCH ×2 (08:47→16:34)
[2018-08-06 04:26] VITALS: BP 118/63
[2018-08-06 08:07] VITALS: BP 114/68
[2018-08-06] MEDS: OLANZapine 10 MG TABLET PO SCH ×2 (08:15→16:32)
[2018-08-06 17:48] VITALS: BP 112/70
[2018-08-07 06:35] VITALS: BP 116/67
[2018-08-07 08:19] VITALS: BP 108/78
[2018-08-07] MEDS: OLANZapine 10 MG TABLET PO SCH ×2 (08:44→16:30)
[2018-08-07 16:13] VITALS: BP 113/79
[2018-08-08] MEDS: HALOPERIDOL 5 MG TABLET PO PRN (01:05)
[2018-08-08 01:14] VITALS: BP 110/66
[2018-08-08] MEDS: OLANZapine 10 MG TABLET PO SCH ×2 (08:04→16:30)
[2018-08-08 08:11] VITALS: BP 109/72
[2018-08-08 08:37] LABS: BAND NEUTROPHILS % (MANUAL) 0 % (0-5)
[2018-08-08 08:51] LABS: HEMATOCRIT 44.6 % (41-53); HEMOGLOBIN 15.3 g/dL (13.5-17.5); MEAN CORPUSCULAR HEMOGLOBIN 29.7 pg (26.0-34.0); MEAN CORPUSCULAR HGB CONC 34.3 G/dL (31.0-37.0); MEAN CORPUSCULAR VOLUME 87 fL (80-100); PLATELET COUNT (AUTO) 149 K/uL (150-450); RED BLOOD CELL COUNT(AUTO) 5.15 MIL/uL (4.50-5.90); RED CELL DISTRIBUTION WIDTH 12.7 % (11.5-14.5)
[2018-08-08 09:25] LABS: ANION GAP 8 mmol/L (8-16); CALCIUM, TOTAL 8.8 mg/dL (8.8-10.5); CARBON DIOXIDE 31 mmol/L (22-29); CHLORIDE 104 mmol/L (98-107); CHOLESTEROL 151 mg/dL (131-200); GLOMERULAR FILTR. RATE CALC > 60 mL/min (>60); GLUCOSE,RANDOM 85 mg/dL (70-110); HDL CHOLESTEROL 25 mg/dL (40-60); LDL CHOL (CALC.) 94 mg/dL (0-130); PHOSPHORUS 4.2 mg/dL (2.5-4.9); POTASSIUM 3.8 mmol/L (3.5-5.1); SODIUM SERUM 143 mmol/L (136-145); TRIGLYCERIDES 162 mg/dL (15-150); UREA NITROGEN, BLOOD 17 mg/dL (7-18)
[2018-08-08 09:26] LABS: BASOPHILS % (MANUAL) 1 % (0-2); EOSINOPHILS % (MANUAL) 1 % (1-6); LYMPHOCYTES % (MANUAL) 36 % (22-44); MONOCYTES % (MANUAL) 4 % (2-9); SEGMENTED NEUTROPHILS % 58 % (40-70)
[2018-08-08 16:03] VITALS: BP 119/74
[2018-08-09 06:36] VITALS: BP 111/75
[2018-08-09] MEDS: OLANZapine 10 MG TABLET PO SCH ×2 (08:14→16:32)
[2018-08-09 12:45] VITALS: BP 107/61
[2018-08-09 16:01] VITALS: BP 124/75
[2018-08-10 00:17] VITALS: BP 101/51
[2018-08-10] MEDS: OLANZapine 10 MG TABLET PO SCH ×2 (08:16→16:42)
[2018-08-10 16:02] VITALS: BP 117/75
[2018-08-11 08:18] VITALS: BP 111/62
[2018-08-11] MEDS: OLANZapine 10 MG TABLET PO SCH ×2 (08:18→16:14)
[2018-08-11] MEDS: HALOPERIDOL 5 MG TABLET PO PRN (12:35)
[2018-08-11] MEDS: MAGNESIUM HYDROXIDE SUSPENSION 30 ML UDCUP PO PRN (16:14)
[2018-08-11 16:24] VITALS: BP 124/73
[2018-08-12 08:58] VITALS: BP 115/86
[2018-08-12] MEDS: OLANZapine 10 MG TABLET PO SCH ×2 (09:41→16:44)
[2018-08-12] MEDS: HALOPERIDOL 5 MG TABLET PO PRN (12:37)
[2018-08-13] MEDS: OLANZapine 10 MG TABLET PO SCH ×2 (08:39→16:37)
[2018-08-13 16:20] VITALS: BP 117/73
[2018-08-13] MEDS: MAGNESIUM HYDROXIDE SUSPENSION 30 ML UDCUP PO PRN (16:45)
[2018-08-14 04:45] VITALS: BP 112/78
[2018-08-14] MEDS: OLANZapine 10 MG TABLET PO SCH ×2 (09:17→16:42)
[2018-08-14] MEDS: MAGNESIUM HYDROXIDE SUSPENSION 30 ML UDCUP PO PRN (10:43)
[2018-08-15 00:18] VITALS: BP_SYST 115; BP_SYST 125; BP_DIAS 74; BP_DIAS 86
[2018-08-15 08:20] VITALS: BP 122/86
[2018-08-15] MEDS: OLANZapine 10 MG TABLET PO SCH ×2 (09:10→16:38)
[2018-08-15 16:00] VITALS: BP 107/67
[2018-08-16] MEDS: OLANZapine 10 MG TABLET PO SCH ×2 (08:38→16:31)
[2018-08-16 16:28] VITALS: BP 104/68
[2018-08-17 08:11] VITALS: BP 105/83
[2018-08-17] MEDS: OLANZapine 10 MG TABLET PO SCH ×2 (08:19→16:35)
[2018-08-18 06:30] VITALS: BP 106/88
[2018-08-18] MEDS: OLANZapine 10 MG TABLET PO SCH ×2 (08:38→16:35)
[2018-08-19] MEDS: OLANZapine 10 MG TABLET PO SCH ×2 (08:36→16:39)
[2018-08-20] MEDS: OLANZapine 10 MG TABLET PO SCH ×2 (08:12→16:34)
[2018-08-20 08:18] VITALS: BP 140/82
[2018-08-21] MEDS: OLANZapine 10 MG TABLET PO SCH ×2 (08:52→16:49)
[2018-08-21 16:40] VITALS: BP 100/60
[2018-08-22 08:14] LABS: BAND NEUTROPHILS % (MANUAL) 0 % (0-5)
[2018-08-22 08:24] LABS: HEMATOCRIT 47.4 % (41-53); MEAN CORPUSCULAR HEMOGLOBIN 29.9 pg (26.0-34.0); MEAN CORPUSCULAR HGB CONC 33.8 G/dL (31.0-37.0); MEAN CORPUSCULAR VOLUME 89 fL (80-100); PLATELET COUNT (AUTO) 157 K/uL (150-450); RED BLOOD CELL COUNT(AUTO) 5.36 MIL/uL (4.50-5.90); RED CELL DISTRIBUTION WIDTH 13.1 % (11.5-14.5)
[2018-08-22] MEDS: OLANZapine 10 MG TABLET PO SCH ×2 (08:41→18:44)
[2018-08-22 08:48] LABS: ANION GAP 7 mmol/L (8-16); CALCIUM, TOTAL 8.9 mg/dL (8.8-10.5); CARBON DIOXIDE 32 mmol/L (22-29); CHLORIDE 102 mmol/L (98-107); CHOL/HDL RATIO 4.6 (4.2-7.3); CHOLESTEROL 165 mg/dL (131-200); CREATININE 1.01 mg/dL (0.60-1.30); GLOMERULAR FILTR. RATE CALC > 60 mL/min (>60); GLUCOSE,RANDOM 124 mg/dL (70-110); HDL CHOLESTEROL 36 mg/dL (40-60); LDL CHOL (CALC.) 102 mg/dL (0-130); PHOSPHORUS 4.1 mg/dL (2.5-4.9); POTASSIUM 4.2 mmol/L (3.5-5.1); SODIUM SERUM 141 mmol/L (136-145); TRIGLYCERIDES 133 mg/dL (15-150); UREA NITROGEN, BLOOD 13 mg/dL (7-18)
[2018-08-22 09:03] LABS: EOSINOPHILS % (MANUAL) 4 % (1-6); LYMPHOCYTES % (MANUAL) 21 % (22-44); MONOCYTES % (MANUAL) 5 % (2-9); SEGMENTED NEUTROPHILS % 70 % (40-70)
[2018-08-22 16:21] VITALS: BP 115/64
[2018-08-23 00:06] VITALS: BP 100/63
[2018-08-23] MEDS: HALOPERIDOL 5 MG TABLET PO PRN (01:16)
[2018-08-23] MEDS: OLANZapine 10 MG TABLET PO SCH ×2 (08:53→16:16)
[2018-08-23 16:22] VITALS: BP 118/92
[2018-08-24] MEDS: OLANZapine 10 MG TABLET PO SCH ×2 (08:57→16:15)
[2018-08-24 16:42] VITALS: BP 114/62
[2018-08-25 00:53] VITALS: BP 120/81
[2018-08-25] MEDS: OLANZapine 10 MG TABLET PO SCH ×2 (08:35→16:20)
[2018-08-25 16:35] VITALS: BP 118/84
[2018-08-26 00:17] VITALS: BP 112/68
[2018-08-26] MEDS: OLANZapine 10 MG TABLET PO SCH ×2 (09:24→17:24)
[2018-08-26 16:29] VITALS: BP 101/62
[2018-08-27 01:08] VITALS: BP 118/70
[2018-08-27] MEDS: OLANZapine 10 MG TABLET PO SCH ×2 (09:46→16:28)
[2018-08-27 16:18] VITALS: BP 110/61
[2018-08-28] MEDS: HALOPERIDOL 5 MG TABLET PO PRN (03:03)
[2018-08-28 04:04] VITALS: BP 106/70
[2018-08-28] MEDS: OLANZapine 10 MG TABLET PO SCH ×2 (08:49→16:51)
[2018-08-28 16:19] VITALS: BP 104/62
[2018-08-29] MEDS: OLANZapine 10 MG TABLET PO SCH ×2 (08:21→16:34)
[2018-08-29 16:44] VITALS: BP 107/70
[2018-08-30] MEDS: OLANZapine 10 MG TABLET PO SCH ×2 (08:22→17:05)
[2018-08-30 16:20] VITALS: BP 112/57
[2018-08-31] MEDS: HALOPERIDOL 5 MG TABLET PO PRN (03:32)
[2018-08-31] MEDS: OLANZapine 10 MG TABLET PO SCH ×2 (09:22→16:23)
[2018-09-01] MEDS: HALOPERIDOL 5 MG TABLET PO PRN (03:29)
[2018-09-01] MEDS: OLANZapine 10 MG TABLET PO SCH ×2 (08:03→17:17)
[2018-09-01 08:10] VITALS: BP 138/87
[2018-09-01 16:08] VITALS: BP 112/72
[2018-09-02] MEDS: OLANZapine 10 MG TABLET PO SCH ×2 (09:09→16:48)
[2018-09-03 02:35] VITALS: BP 120/70
[2018-09-03] MEDS: HALOPERIDOL 5 MG TABLET PO PRN (02:47)
[2018-09-03] MEDS: OLANZapine 10 MG TABLET PO SCH ×2 (08:20→16:48)
[2018-09-04 07:43] LABS: BAND NEUTROPHILS % (MANUAL) 0 % (0-5)
[2018-09-04 07:46] LABS: HEMATOCRIT 45.6 % (41-53); HEMOGLOBIN 15.6 g/dL (13.5-17.5); MEAN CORPUSCULAR HEMOGLOBIN 30.2 pg (26.0-34.0); MEAN CORPUSCULAR HGB CONC 34.2 G/dL (31.0-37.0); MEAN CORPUSCULAR VOLUME 88 fL (80-100); PLATELET COUNT (AUTO) 170 K/uL (150-450); RED BLOOD CELL COUNT(AUTO) 5.17 MIL/uL (4.50-5.90); RED CELL DISTRIBUTION WIDTH 13.8 % (11.5-14.5)
[2018-09-04 08:13] LABS: ANION GAP 9 mmol/L (8-16); CALCIUM, TOTAL 8.7 mg/dL (8.8-10.5); CARBON DIOXIDE 30 mmol/L (22-29); CHLORIDE 106 mmol/L (98-107); CHOL/HDL RATIO 6.1 (4.2-7.3); CHOLESTEROL 188 mg/dL (131-200); CREATININE 0.89 mg/dL (0.60-1.30); GLOMERULAR FILTR. RATE CALC > 60 mL/min (>60); GLUCOSE,RANDOM 105 mg/dL (70-110); HDL CHOLESTEROL 31 mg/dL (40-60); LDL CHOL (CALC.) 111 mg/dL (0-130); PHOSPHORUS 3.7 mg/dL (2.5-4.9); POTASSIUM 3.7 mmol/L (3.5-5.1); SODIUM SERUM 145 mmol/L (136-145); THYROID STIMULATING HORMONE 3.11 uIU/mL (0.36-3.74); TRIGLYCERIDES 228 mg/dL (15-150); UREA NITROGEN, BLOOD 17 mg/dL (7-18)
[2018-09-04] MEDS: OLANZapine 10 MG TABLET PO SCH ×2 (08:18→16:31)
[2018-09-04 08:59] LABS: EOSINOPHILS % (MANUAL) 3 % (1-6); LYMPHOCYTES % (MANUAL) 23 % (22-44); MONOCYTES % (MANUAL) 6 % (2-9); SEGMENTED NEUTROPHILS % 68 % (40-70)
[2018-09-04 16:10] VITALS: BP 133/77
[2018-09-04] MEDS: HALOPERIDOL 5 MG TABLET PO PRN (20:35)
[2018-09-05] MEDS: OLANZapine 10 MG TABLET PO SCH ×2 (08:10→16:36)
[2018-09-05] MEDS: OMEGA-3/DHA/EPA/FISH OIL 1,000 MG CAPSULE PO SCH (09:05)
[2018-09-05 18:12] VITALS: BP 112/90
[2018-09-06] MEDS: OLANZapine 10 MG TABLET PO SCH ×2 (08:07→16:48)
[2018-09-06] MEDS: OMEGA-3/DHA/EPA/FISH OIL 1,000 MG CAPSULE PO SCH (08:07)
[2018-09-06 09:00] VITALS: BP 113/94
[2018-09-06 16:04] VITALS: BP 120/79
[2018-09-07] MEDS: OLANZapine 10 MG TABLET PO SCH ×2 (08:35→16:08)
[2018-09-07] MEDS: OMEGA-3/DHA/EPA/FISH OIL 1,000 MG CAPSULE PO SCH (08:35)
[2018-09-08 01:37] VITALS: BP 120/81
[2018-09-08 08:51] VITALS: BP 122/68
[2018-09-08] MEDS: OLANZapine 10 MG TABLET PO SCH ×2 (08:54→16:35)
[2018-09-08] MEDS: OMEGA-3/DHA/EPA/FISH OIL 1,000 MG CAPSULE PO SCH (08:54)
[2018-09-09] MEDS: OLANZapine 10 MG TABLET PO SCH ×2 (09:40→16:10)
[2018-09-09] MEDS: OMEGA-3/DHA/EPA/FISH OIL 1,000 MG CAPSULE PO SCH (09:40)
[2018-09-09 16:11] VITALS: BP 103/72
[2018-09-10] MEDS: HALOPERIDOL 5 MG TABLET PO PRN ×3 (01:39→23:59)
[2018-09-10 08:21] VITALS: BP 123/90
[2018-09-10] MEDS: OMEGA-3/DHA/EPA/FISH OIL 1,000 MG CAPSULE PO SCH (09:15)
[2018-09-10] MEDS: OLANZapine 10 MG TABLET PO SCH ×2 (09:24→16:12)
[2018-09-11 00:07] VITALS: BP 108/68
[2018-09-11] MEDS: OLANZapine 10 MG TABLET PO SCH ×2 (09:02→17:04)
[2018-09-11] MEDS: OMEGA-3/DHA/EPA/FISH OIL 1,000 MG CAPSULE PO SCH (09:03)
[2018-09-11 09:05] VITALS: BP 115/62
[2018-09-12 07:01] VITALS: BP 110/68
[2018-09-12] MEDS: OLANZapine 10 MG TABLET PO SCH ×2 (08:34→16:44)
[2018-09-12] MEDS: OMEGA-3/DHA/EPA/FISH OIL 1,000 MG CAPSULE PO SCH (08:34)
[2018-09-12 16:21] VITALS: BP 110/73
[2018-09-13 05:33] VITALS: BP 114/90
[2018-09-13] MEDS: OLANZapine 10 MG TABLET PO SCH ×2 (08:44→16:16)
[2018-09-13] MEDS: OMEGA-3/DHA/EPA/FISH OIL 1,000 MG CAPSULE PO SCH (08:44)
[2018-09-14 00:39] VITALS: BP 118/95
[2018-09-14] MEDS: HALOPERIDOL 5 MG TABLET PO PRN (03:41)
[2018-09-14] MEDS: OLANZapine 10 MG TABLET PO SCH ×2 (08:39→17:28)
[2018-09-14] MEDS: OMEGA-3/DHA/EPA/FISH OIL 1,000 MG CAPSULE PO SCH ×2 (08:39→09:00)
[2018-09-14 16:16] VITALS: BP 106/62
[2018-09-15] MEDS: OMEGA-3/DHA/EPA/FISH OIL 1,000 MG CAPSULE PO SCH (08:59)
[2018-09-15] MEDS: OLANZapine 10 MG TABLET PO SCH ×2 (08:59→16:40)
[2018-09-15 16:11] VITALS: BP 118/60
[2018-09-16 05:57] VITALS: BP 112/68
[2018-09-16] MEDS: OMEGA-3/DHA/EPA/FISH OIL 1,000 MG CAPSULE PO SCH (09:58)
[2018-09-16] MEDS: OLANZapine 10 MG TABLET PO SCH ×2 (09:58→17:15)
[2018-09-16 16:21] VITALS: BP 106/60
[2018-09-17] MEDS: OMEGA-3/DHA/EPA/FISH OIL 1,000 MG CAPSULE PO SCH (08:04)
[2018-09-17] MEDS: OLANZapine 10 MG TABLET PO SCH ×2 (08:05→16:45)
[2018-09-17 08:29] VITALS: BP 120/78
[2018-09-18 00:13] VITALS: BP 118/72
[2018-09-18] MEDS: OMEGA-3/DHA/EPA/FISH OIL 1,000 MG CAPSULE PO SCH (09:15)
[2018-09-18] MEDS: OLANZapine 10 MG TABLET PO SCH ×2 (09:15→16:57)
[2018-09-18 16:14] VITALS: BP 111/75
[2018-09-18] MEDS ORDERED: OLAN10TA3 PO (20:12)
[2018-09-18] MEDS ORDERED: OMEG-135 PO (20:17)
[2018-09-19] MEDS: OMEGA-3/DHA/EPA/FISH OIL 1,000 MG CAPSULE PO SCH (09:42)
[2018-09-19] MEDS: OLANZapine 10 MG TABLET PO SCH (09:42)
== END 2018-09-19 09:40 | disposition home or self-care (01) | DRG 885 ==
LOC: EMS 08:30 → 3EX 14:07 → B2X 07-19 20:17
PROVIDERS: ADMIT Psychiatry & Neurology Child & Adolescent Psychiatry; ATTEND Psychiatry & Neurology Child & Adolescent Psychiatry
DX: F20.0 Paranoid schizophrenia (principal); F41.9 Anxiety disorder, unspecified; E03.9 Hypothyroidism, unspecified; F17.210 Nicotine dependence, cigarettes, uncomplicated; G47.00 Insomnia, unspecified; K59.00 Constipation, unspecified; Z91.83 Wandering in diseases classified elsewhere; R45.87 Impulsiveness; E78.00 Pure hypercholesterolemia, unspecified; R45.1 Restlessness and agitation; Z71.6 Tobacco abuse counseling; Z59.0 Homelessness; Z56.0 Unemployment, unspecified; Z91.19 Patient's noncompliance with other medical treatment and regimen; Z88.1 Allergy status to other antibiotic agents; Z88.8 Allergy status to other drugs, medicaments and biological substances
CPT/HCPCS: 83735; 84100; 84439; 84443; 85007; 87081; G0378; G0480